=== PATIENT | female | born 1940 | race Caucasian/White ===

== ENCOUNTER 2017-08-29 18:31 | Emergency (ER) | payer OTHER ==
--- NOTE | 2017-08-29 18:42 | PDOC ---
Rapid Medical Evaluation Time Seen by Provider: 08/29/17 18:36 Medical Evaluation: I have performed a brief in-person evaluation of this patient. The patient presents with a chief complaint of: fell saturday and hit her head. Hasn't been herself since she fell according to family. Patient is on Eliquis and has a previous TIA Pertinent physical exam findings: large contusion to left face/neck. A&O x 4 I have ordered the following: labs, IV insert, Head CT, EKG The patient will proceed to the ED for further evaluation. Discharge Disposition - Diagnosis Recurrent falls, Head trauma, Contusion - Referrals - Patient Instructions - Post Discharge Activity
[2017-08-29 18:45] VITALS: BP 150/99; PULSE 100; TEMP 98.2; BMI 27.2
[2017-08-29 19:32] LABS: BASO % 0.7 % (0-2.0); EOS % 1.8 % (0-4.5); HEMATOCRIT 43.3 % (32.4-45.2); HEMOGLOBIN 14.3 GM/dL (10.7-15.3); LYMPH % 20.8 % (8-40); MCH 28.5 pg (25.7-33.7); MCHC 32.9 g/dl (32.0-36.0); MEAN CELL VOLUME 86.6 fl (80-96); MEAN PLT VOLUME 9.3 fl (7.5-11.1); NEUT % 69.7 % (42.8-82.8); PLATELET COUNT 337 K/MM3 (134-434); RDW 14.2 % (11.6-15.6); WHITE BLOOD COUNT 11.8 K/mm3 (4.0-10.0)
[2017-08-29 19:45] LABS: INR 1.03 (0.82-1.09); PROTHROMBIN TIME (PATIENT) 11.6 SEC (9.7-13.0)
--- NOTE | 2017-08-29 19:50 | PDOC ---
History of Present Illness - General Chief Complaint: Injury Stated Complaint: FALL/INJURY Time Seen by Provider: 08/29/17 18:36 History Source: Patient, Family (Daughter) Exam Limitations: No Limitations - History of Present Illness Initial Comments: 08/29/17 19:44 This 77-year-old woman with past medical history of hypertension, diabetes, hypercholesterolemia, TIA who presents emergency Department with trip and fall on 08/27 striking her left jaw on the coffee table. Patient states her grandson came and found her immediately after striking her face. She denies any LOC and is full recollection of events medially prior to during and after the event. Patient states she was vacuuming at the time and had a little dog in the house who ran between her feet which caused her to fall. Patient is daughter states the patient has had 3-4 falls over the past 3 weeks and she is concerned for the increased frequency of falling. patient currently denies any pain. Past History - Past Medical History Home Medications: Ambulatory Orders Apixaban [Eliquis] 5 mg PO BID 08/29/17 Cholecalciferol (Vitamin D3) [Vitamin D3 -] 800 unit PO DAILY 08/29/17 Digoxin [Lanoxin -] 0.125 mg PO DAILY 08/29/17 Diltiazem HCl [Diltiazem 24Hr Cd] 240 mg PO DAILY 08/29/17 Fluoxetine HCl [Prozac] 40 mg PO DAILY 08/29/17 Furosemide [Lasix] 20 mg PO DAILY 08/29/17 Gabapentin 100 mg PO HS 08/29/17 Insulin (Levemir) [Levemir Vial] 20 unit SQ BID 08/29/17 Metoprolol Succinate [Toprol Xl] 50 mg PO DAILY 08/29/17 Mirtazapine [Remeron -] 15 mg PO HS 08/29/17 Montelukast Na [Singulair -] 10 mg PO DAILY 08/29/17 Ranitidine [Zantac -] 150 mg PO BID 08/29/17 Ranitidine [Zantac -] 150 mg PO BID 08/29/17 Simvastatin 40 mg PO HS 08/29/17 Trazodone HCl 50 mg PO HS 08/29/17 Turmeric 1 gm MC BID 08/29/17 Cardiac Disorders: Yes (a.fib,IN) CVA: Yes COPD: Yes Diabetes: Yes GI Disorders: Yes (gerd) HTN: Yes Hypercholesterolemia: Yes Psychiatric Problems: Yes (DEPRESSION) - Surgical History Appendectomy: Yes Cholecystectomy: Yes - Suicide/Smoking/Psychosocial Hx Smoking History: Never smoked Have you smoked in the past 12 months: No Information on smoking cessation initiated: No Hx Alcohol Use: No Drug/Substance Use Hx: No Substance Use Type: None Review of Systems - Review of Systems Able to Perform ROS?: Yes Is the patient limited [place] proficient: No Constitutional: No: Symptoms Reported HEENTM: Yes: See HPI Respiratory: No: Symptoms reported Cardiac (ROS): No: Symptoms Reported ABD/GI: No: Symptoms Reported : No: Symptoms Reported Musculoskeletal: No: Symptoms Reported Integumentary: No: Symptoms Reported Neurological: No: Symptoms reported Endocrine: No: Symptoms Reported Hematologic/Lymphatic: No: Symptoms Reported *Physical Exam - Vital Signs Last Vital Signs Temp Pulse Resp BP Pulse Ox 98.2 F 100 H 18 150/99 100 08/29/17 18:37 08/29/17 18:37 08/29/17 18:37 08/29/17 18:37 08/29/17 18:37 - Physical Exam General Appearance: Yes: Appropriately Dressed. No: Apparent Distress HEENT: positive: EOMI, TAYA, Normal Voice, Pharynx Normal, Other (Ecchymosis noted to the left mandible.) Neck: positive: Trachea midline, Supple Respiratory/Chest: positive: Lungs Clear, Normal Breath Sounds. negative: Respiratory Distress, Accessory Muscle Use Cardiovascular: positive: Regular Rhythm, Regular Rate, S1, S2. negative: Edema , Murmur Gastrointestinal/Abdominal: positive: Normal Bowel Sounds, Soft. negative: Tender Musculoskeletal: positive: Normal Inspection. negative: CVA Tenderness Extremity: positive: Normal Inspection, Normal Range of Motion Integumentary: positive: Normal Color, Dry, Warm, Ecchymosis (left-sided mandible) Neurologic: positive: restaurant associate II-XII NML intact, Fully Oriented, Alert, Normal Mood/ Affect, Normal Response, Motor Strength 5/5, Finger to Nose. negative: Numbness ED Treatment Course - LABORATORY CBC & Chemistry Diagram: 08/29/17 19:17 08/29/17 19:17 - ADDITIONAL ORDERS Additional order review: 08/29/17 19:17 RBC 5.00 MCV 86.6 MCHC 32.9 RDW 14.2 MPV 9.3 Neutrophils % 69.7 Lymphocytes % 20.8 Monocytes % 7.0 Eosinophils % 1.8 Basophils % 0.7 Medical Decision Making - Medical Decision Making 08/29/17 19:49 A/P: 77-year-old woman with facial trauma status post trip and fall 08/27 TMs clear without erythema or exudates. No hemotympanum present. External auditory canals clear without erythema or exudate Ecchymosis present to the left mandible. Able to fully articulate jaw without any pain. No TMJ tenderness or clicking present on palpation No deformity present to palpation of the jaw No loose teeth noted Moist mucous membranes Oropharynx clear without erythema or exudates Lungs clear to auscultation Cranial nerves II through XII grossly intact. CAT scan, labs, EKG, urine 08/29/17 19:54 CT of the head as read by Dr. Gomez: No CT evidence of acute intercranial pathology. Chronic bilateral occipital cortical infarcts. Probable small chronic left frontal cortical infarct Small chronic left frontal subcortical white matter infarct Possible small chronic right frontal subcortical white matter infarct versus representing focal microvascular ischemic gliosis Left otomastoiditis-? Chronic versus acute. No gross bone erosion is identified. 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 Physical exam findings are not consistent with an acute process. Laboratory testing is unremarkable. I'll discharge the patient to home. *DC/Admit/Observation/Transfer Diagnosis at time of Disposition: Recurrent falls Head trauma Qualifiers: Encounter type: initial encounter Qualified Code(s): S09.90XA - Unspecified injury of head, initial encounter Contusion Qualifiers: Encounter type: initial encounter Contusion area: head Contusion of head detail : other part of head Qualified Code(s): S00.83XA - Contusion of other part of head, initial encounter - Discharge Dispostion Disposition: HOME Condition at time of disposition: Stable Decision to Admit order: No - Referrals Referrals: Kyaw Beasley [Primary Care Provider] - - Patient Instructions Printed Discharge Instructions: DI for Closed Head Injury, How to Prevent Falls Additional Instructions: Take Tylenol or Motrin as needed for headaches. Make an appointment with her primary doctor for reevaluation within the next week. Return to emergency department for headache, blurry vision, dizziness, nausea, vomiting or any other concerns. Thank you very much for for choosing us to provide emergent health care needs. Print Language: MACEDONIAN - Post Discharge Activity
[2017-08-29 19:54] LABS: ALBUMIN 3.8 g/dl (3.4-5.0); ANION GAP 8 (8-16); BILIRUBIN,TOTAL 0.5 mg/dL (0.2-1.0); BLOOD UREA NITROGEN 12 mg/dL (7-18); CALCIUM 9.6 mg/dL (8.5-10.1); CHLORIDE 97 mmol/L (98-107); CO2 29 mmol/L (21-32); CREATININE 1.2 mg/dL (0.55-1.02); GLUCOSE,RANDOM 254 mg/dL (74-106); POTASSIUM 4.8 mmol/L (3.5-5.1); SGOT/AST 26 U/L (15-37); SGPT/ALT 20 U/L (12-78); SODIUM 134 mmol/L (136-145)
[2017-08-29 19:55] LABS: ALK PHOS 130 U/L (45-117)
== END 2017-08-29 21:18 | disposition home or self-care (01) ==
LOC: JER 18:31
DX: S00.83XA Contusion of other part of head, initial encounter (principal); W01.190A Fall on same level from slipping, tripping and stumbling with subsequent striking against furniture, initial encounter; Y93.89 Activity, other specified; Y92.018 Other place in single-family (private) house as the place of occurrence of the external cause; Y99.8 Other external cause status; I48.91 Unspecified atrial fibrillation; Z79.01 Long term (current) use of anticoagulants; I10 Essential (primary) hypertension; E11.9 Type 2 diabetes mellitus without complications; Z79.4 Long term (current) use of insulin; E78.00 Pure hypercholesterolemia, unspecified; J44.9 Chronic obstructive pulmonary disease, unspecified; F32.9 Major depressive disorder, single episode, unspecified; Z86.73 Personal history of transient ischemic attack (TIA), and cerebral infarction without residual deficits
CPT/HCPCS: 36415; 70450-TC; 80053; 85025; 85610; 85730; 86850; 86900; 86901; 99283-25